=== PATIENT | female | born 1945 | race Caucasian/White ===

== ENCOUNTER 2019-09-02 04:23 | Emergency (ER) | payer OTHER, MEDICARE ==
--- OUTSIDE RECORDS SUMMARY | 2019-09-02 04:25 | XMS REPORT ---
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
--- OUTSIDE RECORDS SUMMARY | 2019-09-02 04:25 | XMS REPORT ---
:1945 Author Organization e[employer]Works Care Team Providers Name Role Phone Gladis Oviedo Provider Role Unavailable Allergies, Adverse Reactions, Alerts Substance Reaction Event Type N.K.D.A. 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 Active Problem History of TIA (transient ischemic Z86.73 Active attack) Problem Hyperlipidemia E78.5 Active Problem Hypertension I10 Active Problem Joint disorder, unspecified M25.9 Active Problem Arthralgia M25.50 Active Medications Medication Code Code Instructions Start End Status Dosage System Date Date Fish Oil [facility] 58402013892 1200 MG Orally Active 2 capsules Twice a day Vitamin D3 [facility] 95058877806 2000 UNIT Active 1 capsule Orally Once a day Amlodipine [facility] 74918300270 5 MG Orally Dec 06, Active 1 tablet Besylate Once a day 2017 Pravastatin [facility] 97497453276 10 MG Orally Active 1 tablet Sodium Once a day Amitriptyline [facility] 15482143224 50 MG Orally Active take 1 HCl Once a day tablet by mouth at bedtime Zestoretic [facility] 83007552029 20-12.5 MG Active take 1 Orally Once a tablet by day mouth every day Metoprolol [facility] 06865867542 50 MG Orally Active 1/2 tablet Tartrate Twice a day with food Clonidine HCl [facility] 93502622403 0.1 MG Active TAKE 1 TABLET BY MOUTH TWICE A DAY Plavix [facility] 67371278663 75 MG Orally Active 1 tablet Once a day Aspirin 81 [facility] 28714470993 81 MG Orally Active 1 tablet Once a day Potassium [facility] 89514715475 550 MG Orally Active 1 tablet Gluconate Once a day Results No Known Results Summary Purpose eClinicalWorks Submission
--- OUTSIDE RECORDS SUMMARY | 2019-09-02 04:25 | XMS REPORT ---
:1945 Author Organization eClinicalWorks Care Team Providers Name Role Phone Do Oviedo Provider Role Unavailable Allergies, Adverse Reactions, Alerts Substance Reaction Event Type N.K.D.A. 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 Active Assessment Lumbar back pain with radiculopathy M54.16 Active affecting left lower extremity Assessment Localized edema R60.0 Active Assessment Hypertension I10 Active Assessment Unsteady gait R26.81 Active Problem Localized edema R60.0 Active Problem Lumbar back pain with radiculopathy M54.16 Active affecting left lower extremity Problem Unsteady gait R26.81 Active Problem Hyperlipidemia E78.5 Active Problem Hypertension I10 Active Problem History of TIA (transient ischemic Z86.73 Active attack) Problem Foot pain M79.673 Active Medications Medication Code Code Instructions Start End Status Dosage System Date Date Plavix [facility] 86675982555 75 MG Orally Active 1 tablet Once a day Metoprolol [facility] 49425036167 50 MG Orally Active 1/2 tablet Tartrate Twice a day with food Furosemide [facility] 16288555736 40 MG Orally Active 1 tablet Once a day Pravastatin [facility] 62969404764 10 MG Orally Active 1 tablet Sodium Once a day Potassium [facility] 04089510337 550 MG Orally Active 1 tablet Gluconate Once a day Amlodipine ND 23854927988 5 MG Orally Dec , Active 1 tablet Besylate Once a day 2018 Mobic [facility] 65821949631 7.5 MG Active TAKE 1 TABLET BY MOUTH EVERY DAY Aspirin 81 [facility] 73554544060 81 MG Orally Active 1 tablet Once a day Vitamin D3 [facility] 97901400812 2000 UNIT Active 1 capsule Orally Once a day Fish Oil [facility] 01158809654 1200 MG Orally Active 2 capsules Twice a day Zestoretic [facility] 63058137133 20-12.5 MG Active take 1 Orally Once a tablet by day mouth every day Clonidine HCl [facility] 07857835810 0.1 MG Active TAKE 1 TABLET BY MOUTH TWICE A DAY Amitriptyline [facility] 29451768090 50 MG Orally Active take 1 HCl Once a day tablet by mouth at bedtime Results No Known Results Summary Purpose eClinicalWorks Submission
[2019-09-02 05:47] LABS: Absolute Lymphocytes (CBC) 1.4 K/uL (0.7-4.9); Basophils % 0.2 % (0-1.3); Hematocrit 34.7 % (36.0-45.0); Lymphocytes % 8.7 % (15.3-44.8); MPV 9.7 fL (7.6-11.3); RBC Red Blood Cell Count 3.99 M/uL (3.86-4.86)
[2019-09-02] MEDS ORDERED: NA CHLORIDE 0.9% 1,000 ML ONE (05:56)
[2019-09-02 05:57] LABS: Potassium 3.6 mmol/L (3.5-5.1)
--- NOTE | 2019-09-02 06:00 | ER ---
Nurse's Notes [facility] Name: Asai Sweeney Age: 74 yrs Sex: Female : 1945 Arrival Date: 09/02/2019 Time: 04:24 Bed 17 Private MD: Diagnosis: Postprocedural hemorrhage and hematoma of skin and subcutaneous tissue following a procedure;Elevated white blood cell count Presentation: 09/02 04:38 Presenting complaint: Patient states: "I had surgery on my back yesterday and was jd3 released in the afternoon. we went for dinner after the surgery and when I stood up there was blood on the chair. since then we have been trying to get the bleeding stopped the ways the surgeon told us to.". Transition of care: patient was not received from another setting of care. Onset of symptoms was September 02, 2019. Risk Assessment: Do you want to hurt yourself or someone else? Patient reports no desire to harm self or others. Initial Sepsis Screen: Does the patient meet any 2 criteria? No. Patient's initial sepsis screen is negative. Does the patient have a suspected source of infection? No. Patient's initial sepsis screen is negative. Care prior to arrival: None. 04:38 Method Of Arrival: Wheelchair jd3 04:38 Acuity: DAYANA 3 jd3 Historical: - Allergies: 04:51 No Known Allergies; jd3 - Home Meds: 04:51 amitriptyline 50 mg Oral tab [Active]; amlodipine 5 mg tab [Active]; clonidine HCl 0.1 jd3 mg Oral tab [Active]; clopidogrel 75 mg oral tab [Active]; lisinopril-hydrochlorothiazide oral oral [Active]; meloxicam oral oral [Active]; metoprolol tartrate 25 mg Oral tab [Active]; pravastatin 10 mg oral tab [Active]; - PMHx: 04:51 Hypertension; jd3 - PSHx: 04:51 Hysterectomy; Cholecystectomy; Carpal Tunnel Repair; BERNARDO eyes; jd3 - Immunization history:: Adult Immunizations up to date. - Coronavirus screen:: The patient has NOT traveled to [place] in the past 14 days. The patient has NOT had contact with known/suspected case of Coronavirus? Proceed with normal triage procedures. - Social history:: Smoking status: Patient denies any tobacco usage or history of. - Family history:: not pertinent. - Ebola Screening: : Patient negative for fever greater than or equal to 101.5 degrees Fahrenheit, and additional compatible Ebola Virus Disease symptoms. Screenin:58 Abuse screen: Denies threats or abuse. Nutritional screening: No deficits noted. jd3 Tuberculosis screening: No symptoms or risk factors identified. Fall Risk Fall in past 12 months (25 points). Ambulatory Aid- None/Bed Rest/Nurse Assist (0 pts). Gait- Weak (10 pts.). Mental Status- Oriented to own ability (0 pts). Total Baca Fall Scale indicates Low Risk Score (25-44 pts). Fall prevention measures have been instituted. Side Rails Up X 2 Placed close to Nursing Station Frequent Obs/Assesments occuring Family Present and informed to notify staff if they need to leave bedside. Assessment: 04:53 General: Appears in no apparent distress. comfortable, Behavior is calm, cooperative, jd3 appropriate for age. Pain: Denies pain. Neuro: Level of Consciousness is awake, alert, obeys commands, Oriented to person, place, time, situation. Cardiovascular: Capillary refill < 3 seconds Patient's skin is warm and dry. Respiratory: Airway is patent Respiratory effort is even, unlabored, Respiratory pattern is regular, symmetrical, Denies cough, shortness of breath. GI: No signs and/or symptoms were reported involving the gastrointestinal system. Patient currently denies diarrhea, nausea, vomiting. : No signs and/or symptoms were reported regarding the genitourinary system. EENT: No signs and/or symptoms were reported regarding the EENT system. Derm: Skin is intact, Skin is dry, Skin is normal, Skin temperature is warm dressing in placed to surgical site. small amount of bleeding noted to bandage. Musculoskeletal: Circulation, motion, and sensation intact. Range of motion: intact in all extremities. 05:57 Reassessment: Patient appears in no apparent distress at this time. No changes from jd3 previously documented assessment. Patient and/or family updated on plan of care and expected duration. Pain level reassessed. Patient is alert, oriented x 3, equal unlabored respirations, skin warm/dry/pink. 07:00 General: Appears in no apparent distress. comfortable, Behavior is calm, cooperative. rb1 General: Discharge pending due to IV fluids infusing.. Pain: Denies pain. Neuro: Level of Consciousness is awake, alert, obeys commands, Oriented to person, place, time, situation. Cardiovascular: Capillary refill < 3 seconds is brisk in bilateral fingers. Respiratory: Airway is patent Respiratory effort is even, unlabored, Respiratory pattern is regular, symmetrical. Derm: Skin is pink, warm \\T\\ dry. 08:00 Reassessment: Patient appears in no apparent distress at this time. Patient and/or rb1 family updated on plan of care and expected duration. Pain level reassessed. Patient is alert, oriented x 3, equal unlabored respirations, skin warm/dry/pink. 08:00 Respiratory: Denies shortness of breath. rb1 08:03 Reassessment: Talked to Dr. Broderick about the orthostatics and received a verbal order to rb1 discharge the pt. Vital Signs: 04:51 BP 133 / 88; Pulse 73; Resp 16 S; Temp 97.8(O); Pulse Ox 96% on R/A; Weight 99.79 kg jd3 (R); Height 5 ft. 0 in. (152.40 cm) (R); Pain 0/10; 05:47 BP 142 / 90 Supine; Pulse 74; jd3 05:47 BP 126 / 97 Sitting; Pulse 72; jd3 05:48 BP 113 / 72 Standing; Pulse 83; Resp 17 S; Pulse Ox 99% on R/A; jd3 07:00 BP 163 / 87; Pulse 79; Resp 17; Pulse Ox 95% on R/A; rb1 07:42 BP 143 / 92 Supine; Pulse 74; Pulse Ox 97% on R/A; rb1 07:44 BP 171 / 90 Sitting; Pulse 77; Pulse Ox 100% on R/A; rb1 07:46 BP 162 / 104 Standing; Pulse 74; Pulse Ox 100% on R/A; rb1 04:51 Body Mass Index 42.97 (99.79 kg, 152.40 cm) jd3 07:44 Pt. reports not having any of her BP medications since yesterday morning. rb1 ED Course: 04:24 Patient arrived in ED. ds1 04:38 Antonio Boone RN is Primary Nurse. jd3 04:43 Antonio Elizabeth MD is Attending Physician. paulina 04:45 Triage completed. jd3 04:52 Arm band placed on. jd3 04:58 Patient has correct armband on for positive identification. Bed in low position. Call jd3 light in reach. Side rails up X2. Adult w/ patient. 05:35 Inserted saline lock: 22 gauge in right hand, using aseptic technique. Blood collected. jd3 05:36 Chem 7 Sent. jd3 05:36 CBC with Diff Sent. jd3 05:58 Dressings: non-adherent dressing x 1 sacrum. jd3 08:07 No provider procedures requiring assistance completed. IV discontinued, intact, rb1 bleeding controlled, No redness/swelling at site. Pressure dressing applied. Administered Medications: 05:59 Drug: NS 0.9% 1000 ml Route: IV; Rate: 1 bolus; Site: right hand; jd3 07:48 Follow up: IV Status: Completed infusion rb1 Outcome: 06:00 Discharge ordered by . [facility] 08:07 Patient left the ED. rb1 08:07 Discharged to home via wheelchair, with family. rb1 08:07 Condition: stable 08:07 Discharge instructions given to patient, Instructed on discharge instructions, follow up and referral plans. Demonstrated understanding of instructions, follow-up care, Prescriptions given X none Signatures: Antonio Elizabeth MD MD cha Sanford, Demi ds1 Risa Webster, RN RN rb1 Antonio Boone RN RN jd3 Corrections: (The following items were deleted from the chart) 05:02 04:58 Fall Risk Ambulatory Aid- None/Bed Rest/Nurse Assist (0 pts). Gait- Weak (10 jd3 pts.). Mental Status- Oriented to own ability (0 pts). Total Baca Fall Scale indicates No Risk (0-24 pts). jd3 05:56 05:47 BP 113 / 72 Standing; Pulse 83bpm; Resp 17bpm; Spontaneous; Pulse Ox 99% RA; jd3 jd3 08:03 07:44 BP 171 / 90; Pulse 77bpm; Pulse Ox 100% RA; rb1 rb1 08:32 08:21 Patient left the ED. rb1 rb1
--- NOTE | 2019-09-02 06:01 | EDPHYS ---
Physician Documentation [facility] Name: Asia Sweeney Age: 74 yrs Sex: Female : 1945 Arrival Date: 09/02/2019 Time: 04:24 Bed 17 Private MD: ED Physician Antonio Elizabeth HPI: 09/02 05:16 This 74 yrs old Female presents to ER via Wheelchair with complaints of Post paulina Surgical Pain. 05:16 had procedure yesterday, bleeding. Onset: The symptoms/episode began/occurred this paulina morning. Severity of symptoms: At their worst the symptoms were mild moderate in the emergency department the symptoms are unchanged. The patient has not experienced similar symptoms in the past. Historical: - Allergies: 04:51 No Known Allergies; jd3 - Home Meds: 04:51 amitriptyline 50 mg Oral tab [Active]; amlodipine 5 mg tab [Active]; clonidine HCl 0.1 jd3 mg Oral tab [Active]; clopidogrel 75 mg oral tab [Active]; lisinopril-hydrochlorothiazide oral oral [Active]; meloxicam oral oral [Active]; metoprolol tartrate 25 mg Oral tab [Active]; pravastatin 10 mg oral tab [Active]; - PMHx: 04:51 Hypertension; jd3 - PSHx: 04:51 Hysterectomy; Cholecystectomy; Carpal Tunnel Repair; BERNARDO eyes; jd3 - Immunization history:: Adult Immunizations up to date. - Coronavirus screen:: The patient has NOT traveled to [place] in the past 14 days. The patient has NOT had contact with known/suspected case of Coronavirus? Proceed with normal triage procedures. - Social history:: Smoking status: Patient denies any tobacco usage or history of. - Family history:: not pertinent. - Ebola Screening: : Patient negative for fever greater than or equal to 101.5 degrees Fahrenheit, and additional compatible Ebola Virus Disease symptoms. ROS: 05:16 Constitutional: Negative for fever, chills, and weight loss, Eyes: Negative for injury, paulina pain, redness, and discharge, ENT: Negative for injury, pain, and discharge, Neck: Negative for injury, pain, and swelling, Cardiovascular: Negative for chest pain, palpitations, and edema, Respiratory: Negative for shortness of breath, cough, wheezing, and pleuritic chest pain, Abdomen/GI: Negative for abdominal pain, nausea, vomiting, diarrhea, and constipation, : Negative for injury, bleeding, discharge, and swelling, MS/Extremity: Negative for injury and deformity, Skin: Negative for injury, rash, and discoloration, Neuro: Negative for headache, weakness, numbness, tingling, and seizure. 05:16 Back: Positive for of the sacrum. Exam: 05:16 Constitutional: This is a well developed, well nourished patient who is awake, alert, paulina and in no acute distress. Head/Face: Normocephalic, atraumatic. Eyes: Pupils equal round and reactive to light, extra-ocular motions intact. Lids and lashes normal. Conjunctiva and sclera are non-icteric and not injected. Cornea within normal limits. Periorbital areas with no swelling, redness, or edema. ENT: Nares patent. No nasal discharge, no septal abnormalities noted. Tympanic membranes are normal and external auditory canals are clear. Oropharynx with no redness, swelling, or masses, exudates, or evidence of obstruction, uvula midline. Mucous membranes moist. Neck: Trachea midline, no thyromegaly or masses palpated, and no cervical lymphadenopathy. Supple, full range of motion without nuchal rigidity, or vertebral point tenderness. No Meningismus. Chest/axilla: Normal chest wall appearance and motion. Nontender with no deformity. No lesions are appreciated. Cardiovascular: Regular rate and rhythm with a normal S1 and S2. No gallops, murmurs, or rubs. Normal PMI, no JVD. No pulse deficits. Respiratory: Lungs have equal breath sounds bilaterally, clear to auscultation and percussion. No rales, rhonchi or wheezes noted. No increased work of breathing, no retractions or nasal flaring. Abdomen/GI: Soft, non-tender, with normal bowel sounds. No distension or tympany. No guarding or rebound. No evidence of tenderness throughout. Back: No spinal tenderness. No costovertebral tenderness. Full range of motion. MS/ Extremity: Pulses equal, no cyanosis. Neurovascular intact. Full, normal range of motion. Neuro: Awake and alert, GCS 15, oriented to person, place, time, and situation. Cranial nerves II-XII grossly intact. Motor strength 5/5 in all extremities. Sensory grossly intact. Cerebellar exam normal. Normal gait. Psych: Awake, alert, with orientation to person, place and time. Behavior, mood, and affect are within normal limits. 05:16 Skin: injury, .25 cm incision. Vital Signs: 04:51 BP 133 / 88; Pulse 73; Resp 16 S; Temp 97.8(O); Pulse Ox 96% on R/A; Weight 99.79 kg jd3 (R); Height 5 ft. 0 in. (152.40 cm) (R); Pain 0/10; 05:47 BP 142 / 90 Supine; Pulse 74; jd3 05:47 BP 126 / 97 Sitting; Pulse 72; jd3 05:48 BP 113 / 72 Standing; Pulse 83; Resp 17 S; Pulse Ox 99% on R/A; jd3 07:00 BP 163 / 87; Pulse 79; Resp 17; Pulse Ox 95% on R/A; rb1 07:42 BP 143 / 92 Supine; Pulse 74; Pulse Ox 97% on R/A; rb1 07:44 BP 171 / 90 Sitting; Pulse 77; Pulse Ox 100% on R/A; rb1 07:46 BP 162 / 104 Standing; Pulse 74; Pulse Ox 100% on R/A; rb1 04:51 Body Mass Index 42.97 (99.79 kg, 152.40 cm) jd3 07:44 Pt. reports not having any of her BP medications since yesterday morning. rb1 MDM: 04:43 Patient medically screened. [facility] 05:18 Data reviewed: vital signs, nurses notes, lab test result(s), CBC, electrolytes. [facility] 09/02 05:15 Order name: CBC with Diff [facility] 09/02 05:15 Order name: Chem 7 [facility] 09/02 05:50 Order name: CBC with Manual Differential [facility] 09/02 05:57 Order name: Basic Metabolic Panel; Complete Time: 05:58 [facility] 09/02 05:15 Order name: Orthostatics; Complete Time: 07:01 [facility] 09/02 05:15 Order name: Wound Care: surgicel; Complete Time: 05:36 [facility] 09/02 07:01 Order name: Orthostatics; Complete Time: 08:34 jd3 Administered Medications: 05:59 Drug: NS 0.9% 1000 ml Route: IV; Rate: 1 bolus; Site: right hand; jd3 07:48 Follow up: IV Status: Completed infusion rb1 Disposition: 09/02/19 06:00 Discharged to Home. Impression: Postprocedural hemorrhage and hematoma of skin and subcutaneous tissue following a procedure, Elevated white blood cell count. - Condition is Stable. - Discharge Instructions: Orthostatic Hypotension, Puncture Wound, Puncture Wound, [id number]. - Medication Reconciliation Form, Thank You Letter, Antibiotic Education, Prescription Opioid Use form. - Follow up: Private Physician; When: 2 - 3 days; Reason: Recheck today's complaints, Continuance of care, Re-evaluation by your physician. - Problem is new. - Symptoms have improved. Signatures: Dispatcher [employer] EDAntonio Levin MD MD cha Barber, Rebecca, RN RN rb1 Antonio Boone RN RN jd3 Corrections: (The following items were deleted from the chart) 08:21 06:00 09/02/2019 06:00 Discharged to Home. Impression: Postprocedural hemorrhage and rb1 hematoma of skin and subcutaneous tissue following a procedure; Elevated white blood cell count. Condition is Stable. Discharge Instructions: Puncture Wound, Puncture Wound, [id number], Orthostatic Hypotension. Forms are Medication Reconciliation Form, Thank You Letter, Antibiotic Education, Prescription Opioid Use. Follow up: Private Physician; When: 2 - 3 days; Reason: Recheck today's complaints, Continuance of care, Re-evaluation by your physician. Problem is new. Symptoms have improved. paulina
[2019-09-02 08:30] VITALS: TEMP 97.8
[2019-09-02 08:44] VITALS: O2SAT 100
[2019-09-02 08:46] VITALS: BP 162/104
[2019-09-02 10:40] LABS: Blood Morphology Comment NOT SEEN (NOT SEEN); Platelet Estimate ADEQ
== END 2019-09-02 08:21 | disposition home or self-care (01) ==
LOC: ER 04:23
DX: L76.22 Postprocedural hemorrhage of skin and subcutaneous tissue following other procedure (principal); D72.829 Elevated white blood cell count, unspecified; I10 Essential (primary) hypertension
CPT/HCPCS: 96361; 85025; 80048; 36415; 96360; 99284; J7030

== ENCOUNTER 2022-02-01 14:05 | Emergency (ER) | payer OTHER, MEDICARE ==
--- OUTSIDE RECORDS SUMMARY | 2022-02-01 14:07 | XMS REPORT | Continuity of Care Document ---
:1945 Author Organization [facility] t Address [address] [place] [address] Care Team Providers Name Role Phone Paula Oviedo Primary Care Physician Ivelisse Attending Clinician Unavailable Doctor Unassigned, Name Attending Clinician Unavailable Nessa CAGLE S Attending Clinician Dipika PEREZ Attending Clinician Unavailable Payers Payer Name Policy Type Policy Number Effective Date Expiration Date S ource Problems Condition Condition Condition Status Onset Resolution Last Treating Co mments Source Name Details Category Date Date Treatment Clinician Date No known No known Disease Unive rs active active ity of problems problems [facility] Allergies, Adverse Reactions, Alerts Allergy Allergy Status Severity Reaction(s) Onset Inactive Treating Comm ents Source Name Type Date Date Clinician NO KNOWN Drug Active Univers ALLERGIE Class ity of S [facility] Social History Social Habit Start Date Stop Date Quantity Comments Source Exposure to 2021-11-23 2021-12-03 Not sure [facility] SARS-CoV-2 00:00:00 14:48:00 [facility] (event) Branch Alcohol intake 2021-12-03 2021-12-03 Current University of 00:00:00 00:00:00 non-drinker of [facility] alcohol [place] (finding) Tobacco use and 2016-11-11 2016-11-11 Never used Universit y of exposure 00:00:00 00:00:00 [facility] Sex Assigned At [birth year] Universit y of 00:00:00 00:00:00 [facility] Branch Smoking Status Start Date Stop Date Source Never smoker [facility] Branch Medications Ordered Filled Start Stop Current Ordering Indication Dosage Frequency Signature Comments Components Source Medication Medication Date Date Medication? Clinician (SIG) Name Name Amlodipine Amlodipine 2017-07 Yes Do 1 tablet Common Besylate Besylate 2 [place] [facility] 00:00: - [facility] 00 [facility] cloniDINE Yes .1mg Take 0.1 Univ ers 0.1 mg 5-02 mg by ity of tablet 12:25: mouth 3 [place] 48 (three) Medical times Branch daily. meloxicam Yes 7.5mg Take 7.5 Uni vers 7.5 mg 5-02 mg by ity of tablet 12:25: mouth [place] [address] daily. Medical Branch amitriptyli Yes 25mg Take 25 mg Univers ne 25 mg 5-02 by mouth ity of tablet 12:25: at [place] [address] bedtime. Medical Branch cloniDINE Yes .1mg Take 0.1 Univ ers 0.1 mg 5-02 mg by ity of tablet 12:25: mouth 3 [place] 48 (three) Medical times Branch daily. meloxicam Yes 7.5mg Take 7.5 Uni vers 7.5 mg 5-02 mg by ity of tablet 12:25: mouth [place] [address] daily. Medical Branch amitriptyli Yes 25mg Take 25 mg Univers ne 25 mg 5-02 by mouth ity of tablet 12:25: at [place] [address] bedtime. Medical Branch cloniDINE Yes .1mg Take 0.1 Univ ers 0.1 mg 5-02 mg by ity of tablet 12:25: mouth 3 [place] 48 (three) Medical times Branch daily. meloxicam Yes 7.5mg Take 7.5 Uni vers 7.5 mg 5-02 mg by ity of tablet 12:25: mouth [place] [address] daily. Medical Branch amitriptyli Yes 25mg Take 25 mg Univers ne 25 mg 5-02 by mouth ity of tablet 12:25: at [place] [address] bedtime. Medical Branch acetaminoph Yes TAKE 1 TO U nivers en-codeine 5-17 2 TABLETS ity of 300-30 mg 00:00: [place]OUTH [place] tablet 00 EVERY 6 Medical HOURS Branch NEEDED FOR PAIN acetaminoph Yes TAKE 1 TO U nivers en-codeine 5-17 2 TABLETS ity of 300-30 mg 00:00: [place]TH [place] tablet 00 EVERY 6 Medical HOURS Branch NEEDED FOR PAIN acetaminoph Yes TAKE 1 TO U nivers en-codeine 5-17 2 TABLETS ity of 300-30 mg 00:00: [place]TH [place] tablet 00 EVERY 6 Medical HOURS Branch NEEDED FOR PAIN clopidogrel Yes 75mg Take 75 mg Univers 75 mg 4-13 by mouth ity of tablet 00:00: daily. [place] [facility] Branch lisinopril- Yes 1{tbl} Take 1 Un elder hydrochloro 4-13 tablet by ity of thiazide 00:00: mouth [place] 20-12.5 mg 00 daily. Medical per tablet Branch pravastatin Yes TAKE 1 Univ ers 10 mg 4-13 TABLET BY ity of tablet 00:00: MOUTH AT [place] BEDTIME Medical Branch clopidogrel Yes 75mg Take 75 mg Univers 75 mg 4-13 by mouth ity of tablet 00:00: daily. [place] Medical Branch lisinopril- Yes 1{tbl} Take 1 Un elder hydrochloro 4-13 tablet by ity of thiazide 00:00: mouth [place] 20-12.5 mg 00 daily. Medical per tablet Branch pravastatin Yes TAKE 1 Univ ers 10 mg 4-13 TABLET BY ity of tablet 00:00: MOUTH AT [place] BEDTIME Medical Branch clopidogrel Yes 75mg Take 75 mg Univers 75 mg 4-13 by mouth ity of tablet 00:00: daily. [place] Medical Branch lisinopril- Yes 1{tbl} Take 1 Un elder hydrochloro 4-13 tablet by ity of thiazide 00:00: mouth [place] 20-12.5 mg 00 daily. Medical per tablet Branch pravastatin Yes TAKE 1 Univ ers 10 mg 4-13 TABLET BY ity of tablet 00:00: MOUTH AT [place] BEDTIME Medical Branch amitriptyli Yes TAKE 1 Univ ers ne 10 mg 3-14 TABLET BY ity of tablet 00:00: MOUTH AT [place] BEDTIME Medical Branch amitriptyli Yes TAKE 1 Univ ers ne 10 mg 3-14 TABLET BY ity of tablet 00:00: MOUTH AT [place] BEDTIME Medical Branch amitriptyli Yes TAKE 1 Univ ers ne 10 mg 3-14 TABLET BY ity of tablet 00:00: MOUTH AT [place] BEDTIME Medical Branch metoprolol Yes TAKE 1/2 Uni vers tartrate 50 3-10 TABLET BY ity of mg tablet 00:00: MOUTH TWICE Medical DAILY Branch metoprolol Yes TAKE 1/2 Uni vers tartrate 50 3-10 TABLET BY ity of mg tablet 00:00: MOUTH TWICE Medical DAILY Branch metoprolol Yes TAKE 1/2 Uni vers tartrate 50 3-10 TABLET BY ity of mg tablet 00:00: MOUTH [place] TWICE Medical DAILY Branch Zestoretic Zestoretic Yes Do take 1 Common [place] tablet by Spirit mouth - [facility] every day [facility] Clonidine Clonidine Yes Do 1 tablet Common HCl HCl [place] [facility] Pravastatin Pravastatin Yes Do 1 tablet Common Sodium Sodium [place] [facility] Vitamin D3 Vitamin D3 Yes Do 1 capsule Common [facility] Fish Oil Fish Oil Yes Do 2 capsules Common [place] [facility] Metoprolol Metoprolol Yes Do 1/2 tablet Common Tartrate Tartrate [place] with food S pirit [facility] Plavix Plavix Yes Do 1 tablet Common [place] [facility] Aspirin 81 Aspirin 81 Yes Do 1 tablet Common [place] [facility] Amitriptyli Amitriptyli Yes Do take 1 Common ne HCl ne HCl [place] tablet by Spiri t mouth at [facility] bedtime [facility] Mobic Mobic Yes Do TAKE 1 Common [place] TABLET BY Spirit MOUTH - [facility] EVERY DAY [facility] Vitamin D Vitamin D Yes Do 1 tablet Common [place] [facility] Vital Signs Vital Name Observation Time Observation Value Comments Source Systolic blood 2021-12-03 20:27:00 123 mm[Hg] Univer [facility]ity of [place] pressure Medical Branch Diastolic blood 2021-12-03 20:27:00 57 mm[Hg] Unive rsity of [place] pressure [facility] Heart rate 2021-12-03 20:27:00 53 /min [facility] Body height 2021-12-03 20:27:00 147.3 cm [facility] Body weight 2021-12-03 20:27:00 103.692 kg [facility] BMI 2021-12-03 20:27:00 47.78 kg/m2 [facility] Procedures Procedure Date / Time Performed Performing Clinician Sourc e EXTERNAL PROVIDER 2021-12-11 05:01:00 Doctor Unassigned, No Univ [facility] RECORDS Name [facility] Encounters Start End Encounter Admission Attending Care Care Encounter Source Date/Time Date/Time Type Type Clinicians Facility Department ID 2021-08-06 Outpatient Ivelisse STANA STLMLC [id number] Common 11:11:00 [place] [id number] [facility] 2021-12-11 2021-12-11 Orders Doctor PROMISE [id number] Univers 00:00:00 00:00:00 Only Unassigned, RUTHIE [id number] ity of [place] [facility] [id number] Michael as [id number] [address] 2021-12-03 2021-12-03 Office Nessa [facility] [id number] Univers 15:30:00 16:08:52 Visit [facility] [id number] it y of [place] [id number] Michael as CHRISTAL?BLEA [id number] [address] MEDICAL OFFICE BUILDING 2021-12-03 2021-12-03 Outpatient R [facility] [id number] Univers 15:30:00 16:08:52 FERNANDO schaefer [facility] 2021-09-10 2021-09-10 ambulatory STLMLC STLMLC [id number] Common 00:00:00 00:00:00 [facility] 2021-09-10 2021-09-10 ambulatory STLMLC STLMLC [id number] Common 00:00:00 00:00:00 [facility] 2021-05-27 2021-05-27 ambulatory STLMLC STLMLC [id number] Common 00:00:00 00:00:00 [facility] 2021-03-13 2021-03-13 Outpatient STLMLC STLMLC [id number] Common 00:00:00 00:00:00 [facility] 2021-02-28 2021-02-28 Outpatient STLMLC STL[facility]C [id number] Common 00:00:00 00:00:00 [facility] 2020-10-30 2020-10-30 Outpatient STLMLC STLMLC [id number] Common 00:00:00 00:00:00 [facility] 2020-09-12 2020-09-12 Outpatient STLMLC STLMLC [id number] Common 00:00:00 00:00:00 [facility] 2020-08-05 2020-08-05 Outpatient STLMLC STLMLC [id number] Common 00:00:00 00:00:00 [facility] 2020-03-15 2020-03-15 [facility] [id number] Common 10:20:00 10:20:00 [facility] [address] [facility] 2019-12-11 2019-12-11 [facility] [id number] Common 09:00:00 09:00:00 [facility] [address] [facility] 2019-09-13 2019-09-13 [facility] [id number] Common 10:00:00 10:00:00 [facility] [address] [facility] 2019-09-08 2019-09-08 [facility] [id number] Common 16:33:00 16:33:00 [facility] [address] [facility] 2019-09-08 2019-09-08 [facility] [id number] Common 11:08:00 11:08:00 [facility] [address] [facility] 2019-02-13 2019-02-13 Out[facility] [id number] Common 09:40:00 09:40:00 t [facility] [address] [facility] 2018-07-06 2018-07-06 Outpatient Isaias Bentley [id number] Common 15:41:00 15:41:00 t [facility] [address] Road [facility] 2018-06-21 2018-06-21 Outpatient Isaias Bentley [id number] Common 13:45:00 13:45:00 t [facility] Road [facility] it [address] [facility] Results This patient has no known results.
--- NOTE | 2022-02-01 15:11 | EDPHYS ---
Physician Documentation [facility] Name: Asia Sweeney Age: 76 yrs Sex: Female : 1945 Arrival Date: 02/01/2022 Time: 14:36 Bed Waiting Private MD: ED Physician Sarah Beckham HPI: 02/01 15:05 This 76 yrs old Female presents to ER via Ambulatory with complaints of covid+, sd2 headache. 15:05 76 yo F with a hx of HTN and HLD presents with CC of testing positive for COVID on sd2 Wednesday. Reports having body aches and headache associated improved with Tylenol at home. Denies any fever, CP, SOB, vomiting or diarrhea. Has had some mild occasional nausea. Reports she currently feels okay but her "assembler watch train" was concerned due to her age and wanted her to come to the ER to be further evaluated.. Historical: - Allergies: 14:54 No Known Allergies; ap3 - PMHx: 14:54 Hypertension; Hypercholesterolemia; ap3 - Immunization history:: Client reports receiving the 2nd dose of the Covid vaccine. - Social history:: Smoking status: Patient denies any tobacco usage or history of. ROS: 15:05 Constitutional: Negative for fever, chills, and weight loss. sd2 15:05 Eyes: Negative for injury, pain, redness, and discharge, Cardiovascular: Negative for chest pain, palpitations, and edema, Respiratory: Negative for shortness of breath, cough, wheezing. 15:05 MS/Extremity: Negative for injury and deformity, Skin: Negative for injury, rash, and discoloration, Neuro: Positive for headache. Negative for numbness and tingling. 15:05 Constitutional: Positive for body aches, Negative for fever, malaise, poor PO intake. 15:05 Abdomen/GI: Positive for nausea, Negative for abdominal pain, vomiting, diarrhea, abdominal cramps, abdominal distension. Exam: 15:05 Constitutional: This is a well developed, well nourished patient who is awake, alert, sd2 and in no acute distress. Head/Face: Normocephalic, atraumatic. Chest/axilla: Normal chest wall appearance and motion. Nontender with no deformity. Cardiovascular: Regular rate and rhythm with a normal S1 and S2. No gallops, murmurs, or rubs. 2+ distal pulses. Respiratory: Lungs have equal breath sounds bilaterally, clear to auscultation and percussion. No rales, rhonchi or wheezes noted. No increased work of breathing, no retractions or nasal flaring. Abdomen/GI: Soft, non-tender, with normal bowel sounds. No guarding or rebound. No evidence of tenderness throughout. Skin: Warm, dry with normal turgor. Normal color with no rashes, no lesions, and no evidence of cellulitis. MS/ Extremity: Pulses equal, no cyanosis. Neurovascular intact. Full, normal range of motion. Ambulatory without difficulty. Psych: Awake, alert, with orientation to person, place and time. Behavior, mood, and affect are within normal limits. Vital Signs: 14:52 BP 105 / 64; Pulse 56; Resp 17; Temp 97.9; Pulse Ox 100% ; Weight 99.79 kg; Height 5 ap3 ft. 0 in. (152.40 cm); 14:52 Body Mass Index 42.97 (99.79 kg, 152.40 cm) ap3 MDM: 15:04 Patient medically screened. sd2 15:05 Differential Diagnosis Viral URI, AOM, AOE, PNA, UTI, herpangina, COVID, flu among sd2 others. Data reviewed: vital signs, nurses notes. Counseling: I had a detailed discussion with the patient and/or guardian regarding: the historical points, exam findings, and any diagnostic results supporting the discharge/admit diagnosis, the need for outpatient follow up, to return to the emergency department if symptoms worsen or persist or if there are any questions or concerns that arise at home. Medical screen evaluation completed. [facility] emergency medical condition absent. ED course: Discussed supportive care for COVID. Pt with no respiratory distress or hypoxia. Controlling symptoms well at home with OTC medications. She is on a statin and concern for interaction with Paxlovid. pt agrees to forego this treatment at this time. She is overall very well appearing and nontoxic with very mild symptoms and is comfortable with a plan for discharge with continued quarantine and outpatient follow up with her PCP this week. Verbalizes understanding of discharge plan and strict return precautions.. Administered Medications: No medications were administered Disposition Summary: 02/01/22 15:11 Discharge Ordered Location: Home sd2 Problem: an ongoing problem sd2 Symptoms: are unchanged sd2 Condition: Stable sd2 Diagnosis - Coronavirus infection, unspecified sd2 Followup: sd2 - With: Private Physician - When: 2 - 3 days - Reason: Recheck today's complaints, Continuance of care, Re-evaluation by your physician Followup: sd2 - With: Emergency Department - When: As needed - Reason: Discharge Instructions: - Discharge Summary Sheet sd2 - COVID-19 sd2 - 10 Things You Can Do to Manage Your COVID-19 Symptoms at Home - [facility] sd2 Forms: - Medication Reconciliation Form sd2 - Thank You Letter sd2 - Antibiotic Education sd2 - Prescription Opioid Use sd2 Signatures: Ana Zelaya RN RN ap3 Sarah Beckham MD MD sd2
--- NOTE | 2022-02-01 15:11 | ER ---
Nurse's Notes [facility] Name: Asia Sweeney Age: 76 yrs Sex: Female : 1945 Arrival Date: 02/01/2022 Time: 14:36 Bed Waiting Private MD: Diagnosis: Coronavirus infection, unspecified Presentation: 02/01 14:52 Chief complaint: Patient states: she tested positive for coivd yesterday. her ap3 significant other was concerned due to her age, so she came to be evaluated. Coronavirus screen: Client reports previous positive COVID test result. Ebola Screen: No symptoms or risks identified at this time. Initial Sepsis Screen: Does the patient meet any 2 criteria? No. Patient's initial sepsis screen is negative. Does the patient have a suspected source of infection? No. Patient's initial sepsis screen is negative. Risk Assessment: Do you want to hurt yourself or someone else? Patient reports no desire to harm self or others. Onset of symptoms was January 30, 2022. 14:52 Method Of Arrival: Ambulatory ap3 14:52 Acuity: DAYANA 4 ap3 Triage Assessment: 14:55 General: Appears in no apparent distress. Behavior is calm, cooperative. Pain: ap3 Complains of pain in generalized body aches. EENT: Reports pain when swallowing. Neuro: Level of Consciousness is awake, alert, obeys commands, Oriented to person, place, time, situation, Speech is normal. Cardiovascular: Patient's skin is warm and dry. Respiratory: Airway is patent Respiratory effort is even, unlabored, Respiratory pattern is regular, symmetrical. GI: Reports nausea. Historical: - Allergies: 14:54 No Known Allergies; ap3 - PMHx: 14:54 Hypertension; Hypercholesterolemia; ap3 - Immunization history:: Client reports receiving the 2nd dose of the Covid vaccine. - Social history:: Smoking status: Patient denies any tobacco usage or history of. Screenin:55 Abuse screen: Denies threats or abuse. Nutritional screening: No deficits noted. ap3 Tuberculosis screening: No symptoms or risk factors identified. 15:52 Fall Risk None identified. ap3 Vital Signs: 14:52 BP 105 / 64; Pulse 56; Resp 17; Temp 97.9; Pulse Ox 100% ; Weight 99.79 kg; Height 5 ap3 ft. 0 in. (152.40 cm); 14:52 Body Mass Index 42.97 (99.79 kg, 152.40 cm) ap3 ED Course: 14:36 Patient arrived in ED. as 14:54 Triage completed. ap3 14:55 Arm band placed on left wrist. ap3 14:58 Sarah Beckham is Attending Physician. sd2 15:51 No provider procedures requiring assistance completed. Patient did not have IV access ap3 during this emergency room visit. 15:52 Patient has correct armband on for positive identification. Adult w/ patient. Pulse ox ap3 on. NIBP on. Administered Medications: No medications were administered Medication: 15:52 VIS not applicable for this client. ap3 Outcome: 15:11 Discharge ordered by . sd2 15:51 Discharged to home ambulatory. ap3 15:51 Condition: good 15:51 Discharge instructions given to patient, Instructed on discharge instructions, follow up and referral plans. Demonstrated understanding of instructions, follow-up care. 15:52 Patient left the ED. ap3 Signatures: Gina Charlton Amanda, ANITHA RN ap3 Sarah Beckham MD MD sd2
[2022-02-01 16:04] VITALS: BP 105/64; TEMP 97.9; O2SAT 100
== END 2022-02-01 15:52 | disposition home or self-care (01) ==
LOC: ER 14:05
DX: U07.1 COVID-19 (principal); I10 Essential (primary) hypertension; E78.00 Pure hypercholesterolemia, unspecified
CPT/HCPCS: 99283